=== PATIENT | female | born 1960 | race Caucasian/White ===

== ENCOUNTER 2020-07-02 08:09 | Emergency (ER) | payer BC ==
[~2020-07-02] VITALS: Ht 167.6 cm; Wt 72.6 kg
[2020-07-02 08:28] VITALS: BP 155/98
[2020-07-02] MEDS ORDERED: Morphine Sulfate 4mg/ml Inj (IV USE ONLY) IVP ONE (08:30)
--- NOTE | 2020-07-02 08:49 | NUR ---
ED Nurse Note: pt states walking up stairs yesterday. trip and fall. etoh. pt states hit head, doesnt remember everything. pt A&Ox4 currently. pt presents with R shoulder deformity, able to squeeze hand, wiggle fingers, no tingling or numbness in fingers. R shoulder pain. 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
[2020-07-02 09:00] LABS: BASOPHILS % (AUTO) 3.7 % (0.0-2.0); EOSINOPHILS % (AUTO) 0.4 % (0.0-3.0); HEMATOCRIT 46.9 % (37.0-47.0); HEMOGLOBIN 15.4 G/DL (12.0-16.0); LYMPHOCYTES % (AUTO) 8.7 % (20.0-45.0); MEAN CORPUSCULAR VOLUME 99 FL (80-99); MONOCYTES % (AUTO) 9.1 % (1.0-10.0); NEUTROPHILS % (AUTO) 78.1 % (45.0-75.0); PLATELET COUNT 210 K/UL (150-450); RED BLOOD COUNT 4.74 M/UL (4.20-5.40); RED CELL DISTRIBUTION WIDTH 13.5 % (11.6-14.8); WHITE BLOOD COUNT 14.5 K/UL (4.8-10.8)
[2020-07-02 09:24] LABS: ANION GAP 12 mmol/L (5-15); BLOOD UREA NITROGEN 9 mg/dL (7-18); CALCIUM 9.1 MG/DL (8.5-10.1); CARBON DIOXIDE 24 MMOL/L (21-32); CHLORIDE 104 MMOL/L (98-107); CREATININE 0.8 MG/DL (0.55-1.30); INR 0.9 (0.9-1.1); POTASSIUM 4.3 MMOL/L (3.5-5.1); SODIUM 140 MMOL/L (136-145)
[2020-07-02 09:28] LABS: ALANINE AMINOTRANSFERASE 44 U/L (12-78); ALBUMIN 3.7 G/DL (3.4-5.0); ALBUMIN/GLOBULIN RATIO 0.9 (1.0-2.7); ALKALINE PHOSPHATASE 79 U/L (46-116); ASPARTATE AMINO TRANSFERASE 31 U/L (15-37); BILIRUBIN,TOTAL 0.3 MG/DL (0.2-1.0)
--- NOTE | 2020-07-02 09:35 | NUR ---
ED Nurse Note: pt returned from CT.
--- NOTE | 2020-07-02 09:46 | Diagnostic Imaging Report ---
Indications: Head trauma, altered level of consciousness Technique: Spiral acquisitions obtained through the brain. Angled axial and coronal 5 x 5 mm slices were reconstructed. Total dose length product 1072 mGycm. CTDI vol(s) 53 mGy. Dose reduction achieved using automated exposure control Comparison: None. Findings: No acute intracranial hemorrhage or edema, mass effect, nor midline shift. Normal casillas-white differentiation. There is right supraorbital soft tissue scalp contusion noted. There is minimal ethmoid sinus disease. The visualized orbits are unremarkable.. The mastoids are clear. The calvarium is intact. Impression: Negative for acute intracranial bleed or mass effect. Evidence of supraorbital scalp soft tissue trauma Minimal sinus disease The CT scanner at [facility] is accredited by the [place] [employer] and the scans are performed using protocols designed to limit radiation exposure to as low as reasonably achievable to attain images of sufficient resolution adequate for diagnostic evaluation.
[2020-07-02] MEDS ORDERED: Morphine Sulfate 2mg/ml Inj(IV/IM USE ONLY) IVP ONE (10:00)
[2020-07-02] MEDS ORDERED: Ketorolac 30mg Inj IV ONE (10:00)
[2020-07-02] MEDS ORDERED: COLACE100 MG ORAL (10:01)
[2020-07-02] MEDS ORDERED: PERCOCET 5-3251 EACH ORAL (10:01)
--- NOTE | 2020-07-02 10:11 | NUR ---
ED Nurse Note: covid test sent. pt verbalizes understanding to followup with ortho specialist for possible surgery consutl. pt medicated for pain. pt R arm put into sling for immobilization
--- NOTE | 2020-07-02 10:45 | NUR ---
ER DISCHARGE NOTE: Patient is cleared to be discharged per ERMD, pt is aox4, on room air, with stable vital signs. pt was given dc and prescription instructions, pt was able to verbalize understanding, pt id band and iv site removed without complications. pt is able to ambulate with steady gait. pt took all belongings. pt educated regarding narcotics, R shoulder immobilization. pt verbalizes to followup with specialist.
[2020-07-02 10:50] VITALS: BP 130/67
--- NOTE | 2020-07-02 13:35 | Emergency Room Report ---
History of Present Illness General Chief Complaint: Upper Extremity Injury Source: Patient Present Illness HPI Patient is a 59-year-old female presents for increased right upper extremity pain. Patient had recent fall from standing. She stated she was walking upstairs at the time. Reports having hit her head. Also reports having increased pain to the left hand. Patient said injury occurred approximately 5 hours prior to arrival. Reports being a smoker and having prior history of COPD. Denies any other locations of trauma. Has been ambulatory after the injury. Reports having normal movements to her hand as well as to her elbow. Denies any numbness distally to the injury. Pain is worse with movement sharp in nature. Allergies: Coded Allergies: No Known Allergies (Unverified , 07/02/20) COVID-19 Screening Contact w/high risk pt: No Experienced COVID-19 symptoms?: No COVID-19 Testing performed DIRECTORY ASSISTANCE OPERATOR: No Patient History Past Medical History: see triage record Reviewed Nursing Documentation: PMH: Agreed; PSxH: Agreed Nursing Documentation-PMH Past Medical History: No History, Except For Hx COPD: Yes Review of Systems All Other Systems: negative except mentioned in HPI Physical Exam Vital Signs Date Time Temp Pulse Resp B/P (MAP) Pulse Ox O2 Delivery O2 Flow Rate FiO2 07/02/20 08:14 98.2 110 20 148/86 (106) 93 Room Air Sp02 EP Interpretation: reviewed, normal General Appearance: normal inspection, well appearing, no apparent distress, alert, GCS 15, obese Head: atraumatic ENT: normal ENT inspection, hearing grossly normal, normal voice Neck: normal inspection, full range of motion, supple, no bony tend Respiratory: normal inspection, lungs clear, normal breath sounds, no respiratory distress, no retraction, no wheezing Cardiovascular #1: regular rate, rhythm, no edema Gastrointestinal: normal inspection, normal bowel sounds, non tender, soft, no guarding, no hernia Genitourinary: no CVA tenderness Musculoskeletal: normal inspection, back normal, normal range of motion Neurologic: alert, source water protection specialist III-XII nml as tested, responsive, speech normal, normal inspection, other - Right upper extremity with tenderness over the humerus. No clavicular tenderness Psychiatric: normal inspection, judgement/insight normal, mood/affect normal Medical Decision Making Diagnostic Impression: Primary Impression: Closed right humeral fracture Additional Impressions: Contusion of hand Forehead contusion ER Course Patient presented for fall. Differential diagnosis include was not limited to head injury, shoulder dislocation, fracture among others. Because of complexity of patient's case laboratory tests and imaging studies were ordered. CT imaging of the head read by radiology showed no evidence of acute pathology patient was alert and oriented x3. X-ray imaging of the humerus showed proximal humerus fracture which is markedly comminuted. Patient was placed in a shoulder immobilizer. She was given pain medications. Appears to be neurovascular intact distal to injury. Dr. Cortez Irving was contacted for orthopedic consult and patient will be seen in the office for definitive management. Coronavirus testing was sent for preoperative clearance. Patient was offered admission and she declined. She states she will follow-up with Dr. Irving. Patient was advised to return if any worsening of condition. This medical record is generated with miC[employer] supervisor color making software. There may be some supervisor color making discrepancies related to use of this software Last Vital Signs Date Time Temp Pulse Resp B/P (MAP) Pulse Ox O2 Delivery O2 Flow Rate FiO2 07/02/20 10:50 100 18 130/67 97 Room Air 07/02/20 10:44 98.2 Status: improved Disposition: HOME, SELF-CARE Condition: Stable Scripts Docusate Sodium* (COLACE*) 100 Mg Capsule 100 MG ORAL TWICE A DAY, #20 CAP Prov: Diallo Murrell MD 07/02/20 Oxycodone/Acetaminophen 5-325* (PERCOCET 5-325 MG TABLET*) 1 Each Tablet 1 TAB ORAL Q6H PRN for For Pain, #12 TAB 0 Refills Prov: Diallo Murrell MD 07/02/20 Referrals: NOT CHOSEN IPA/MD,REFERRING (PCP) Moris Irving MD Patient Instructions: Head Injury, Adult, Humerus Fracture Treated With Immobilization Additional Instructions: Follow up with Dr. Irving for recheck tomorrow. Return if worse. Diallo Murrell MD Jul 02, 2020 13:34
--- NOTE | 2020-07-02 18:13 | Diagnostic Imaging Report ---
Indication: Fall, trauma, pain Technique: 3 views of the right shoulder Comparison: none Findings: There is a severely comminuted fracture of the right humeral neck. This is minimally displaced, slightly impacted. This also extends into the humeral head and greater tuberosity. The bones are osteoporotic. The joint spaces are preserved. No dislocation. Impression: Positive for proximal humeral fracture
--- NOTE | 2020-07-02 18:15 | Diagnostic Imaging Report ---
Indication: Painful fall Technique: 3 views left hand Comparison: none Findings: No acute fracture. No dislocation. Bones are osteoporotic. The joint spaces are preserved. Impression: No acute bony trauma
== END 2020-07-02 11:00 | disposition home or self-care (01) ==
LOC: EMR 10:14
DX: S42.201A Unspecified fracture of upper end of right humerus, initial encounter for closed fracture (principal); S60.221A Contusion of right hand, initial encounter; S00.83XA Contusion of other part of head, initial encounter; J44.9 Chronic obstructive pulmonary disease, unspecified; F17.200 Nicotine dependence, unspecified, uncomplicated; W10.9XXA Fall (on) (from) unspecified stairs and steps, initial encounter; Y93.01 Activity, walking, marching and hiking; Y92.9 Unspecified place or not applicable
CPT/HCPCS: 36415; 70450; 73030; 73130; 80053; 85025; 85610; 85730; 96374; 96375; 96376; 99284; J1885; J2270; J2405; U0004

== ENCOUNTER 2020-07-04 12:28 | Inpatient (IN) | payer BC, MEDICAID ==
[~2020-07-04] VITALS: Ht 165.1 cm; Wt 72.6 kg
[~2020-07-04 12:28] MED LIST: COLACE100 MG ORAL; PERCOCET 5-3251 EACH ORAL
--- NOTE | 2020-07-04 12:53 | NUR ---
ED Nurse Note:pt. was sent by dr. Irving for preadmition for right shoulder surgery tomorrow
[2020-07-04 13:05] VITALS: BP 162/87
[2020-07-04 13:22] LABS: BASOPHILS % (AUTO) 0.7 % (0.0-2.0); EOSINOPHILS % (AUTO) 0.3 % (0.0-3.0); HEMATOCRIT 42.4 % (37.0-47.0); HEMOGLOBIN 13.9 G/DL (12.0-16.0); LYMPHOCYTES % (AUTO) 20.8 % (20.0-45.0); MEAN CORPUSCULAR VOLUME 100 FL (80-99); MONOCYTES % (AUTO) 7.9 % (1.0-10.0); NEUTROPHILS % (AUTO) 70.3 % (45.0-75.0); PLATELET COUNT 194 K/UL (150-450); RED BLOOD COUNT 4.24 M/UL (4.20-5.40); RED CELL DISTRIBUTION WIDTH 13.6 % (11.6-14.8); WHITE BLOOD COUNT 12.8 K/UL (4.8-10.8)
[2020-07-04 13:28] LABS: ANION GAP 9 mmol/L (5-15); BLOOD UREA NITROGEN 10 mg/dL (7-18); CALCIUM 9.4 MG/DL (8.5-10.1); CARBON DIOXIDE 28 MMOL/L (21-32); CHLORIDE 101 MMOL/L (98-107); CREATININE 0.8 MG/DL (0.55-1.30); POTASSIUM 3.7 MMOL/L (3.5-5.1); SODIUM 137 MMOL/L (136-145)
[2020-07-04 13:33] LABS: ALANINE AMINOTRANSFERASE 33 U/L (12-78); ALBUMIN 3.4 G/DL (3.4-5.0); ALBUMIN/GLOBULIN RATIO 0.8 (1.0-2.7); ALKALINE PHOSPHATASE 74 U/L (46-116); ASPARTATE AMINO TRANSFERASE 22 U/L (15-37); BILIRUBIN,TOTAL 0.6 MG/DL (0.2-1.0)
[2020-07-04] MEDS ORDERED: HYDROcodone/Acetamin 5/325 tab ORAL ONE (13:45)
--- NOTE | 2020-07-04 13:56 | Emergency Room Report ---
History of Present Illness General Chief Complaint: Upper Extremity Injury Source: Patient Present Illness HPI Disclaimer: Please note that this report is being documented using dbTwang technology. This can lead to erroneous entry secondary to incorrect interpretation by the dictating instrument. HPI: 59-year-old female history of COPD presents as directed by her primary orthopedist for a proximal right humerus fracture. Orthopedics would like to do surgery to repair the fracture. Referred by Dr. Irving. Patient does have pain in the arm approximately 8 out of 10 aching in nature nonradiating. She was seen here 2 days ago for a fall. At that time CT was negative. PMH: COPD PSH: Reviewed Social Hx: Active smoker occasional drinking Allergies: Coded Allergies: No Known Allergies (Unverified , 07/02/20) COVID-19 Screening Contact w/high risk pt: No Experienced COVID-19 symptoms?: No COVID-19 Testing performed YARD HAND: Yes COVID-19 Screening: Negative COVID-19 COVID-19 Testing Source: nasal Patient History Reviewed Nursing Documentation: PMH: Agreed; PSxH: Agreed Nursing Documentation-PMH Past Medical History: No History, Except For Hx COPD: Yes Review of Systems All Other Systems: negative except mentioned in HPI Physical Exam Vital Signs Date Time Temp Pulse Resp B/P (MAP) Pulse Ox O2 Delivery O2 Flow Rate FiO2 07/04/20 12:42 98.1 115 18 162/87 (112) 98 Room Air Sp02 EP Interpretation: reviewed, normal General Appearance: well appearing, no apparent distress Head: normocephalic, other - Right periorbital contusion Eyes: bilateral eye PERRL, bilateral eye EOMI ENT: hearing grossly normal, moist mucus membranes Neck: full range of motion, supple Respiratory: lungs clear, normal breath sounds, no rhonchi, no respiratory distress, no retraction, no wheezing Cardiovascular #1: normal peripheral pulses, no murmur, tachycardia Gastrointestinal: non tender, soft, non-distended, no guarding Musculoskeletal: other - Right upper extremity swollen tender at the proximal humerus, arm is in an immobilizer, sensation and motor intact pulses intact Neurologic: alert, oriented x3, no focal defects Skin: normal color, warm/dry Medical Decision Making Diagnostic Impression: Primary Impression: Closed right humeral fracture ER Course MDM: Patient presents for known right proximal humerus fracture. Dr. Irving plans to do surgery on the arm. Perioperative labs were sent. No significant abnormalities noted. Pain control ordered. Patient will be admitted to the medical floor under Dr. Hurst Clinical course-IV, labs, pain control Labs - Laboratory Tests Test 07/04/20 13:00 White Blood Count 12.8 K/UL (4.8-10.8) H Red Blood Count 4.24 M/UL (4.20-5.40) Hemoglobin 13.9 G/DL (12.0-16.0) Hematocrit 42.4 % (37.0-47.0) Mean Corpuscular Volume 100 FL (80-99) H Mean Corpuscular Hemoglobin 32.7 PG (27.0-31.0) H Mean Corpuscular Hemoglobin Concent 32.7 G/DL (32.0-36.0) Red Cell Distribution Width 13.6 % (11.6-14.8) Platelet Count 194 K/UL (150-450) Mean Platelet Volume 9.7 FL (6.5-10.1) Neutrophils (%) (Auto) 70.3 % (45.0-75.0) Lymphocytes (%) (Auto) 20.8 % (20.0-45.0) Monocytes (%) (Auto) 7.9 % (1.0-10.0) Eosinophils (%) (Auto) 0.3 % (0.0-3.0) Basophils (%) (Auto) 0.7 % (0.0-2.0) Prothrombin Time 10.9 SEC (9.30-11.50) Prothrombin Time INR 1.0 (0.9-1.1) Activated Partial Thromboplast Time 30 SEC (23-33) Sodium Level 137 MMOL/L (136-145) Potassium Level 3.7 MMOL/L (3.5-5.1) Chloride Level 101 MMOL/L (98-107) Carbon Dioxide Level 28 MMOL/L (21-32) Anion Gap 9 mmol/L (5-15) Blood Urea Nitrogen 10 mg/dL (7-18) Creatinine 0.8 MG/DL (0.55-1.30) Estimated Glomerular Filtration Rate > 60 mL/min (>60) Glucose Level 120 MG/DL (74-106) H Calcium Level 9.4 MG/DL (8.5-10.1) Total Bilirubin 0.6 MG/DL (0.2-1.0) Aspartate Amino Transferase (AST) 22 U/L (15-37) Alanine Aminotransferase (ALT) 33 U/L (12-78) Alkaline Phosphatase 74 U/L (46-116) Total Protein 7.5 G/DL (6.4-8.2) Albumin 3.4 G/DL (3.4-5.0) Globulin 4.1 g/dL Albumin/Globulin Ratio 0.8 (1.0-2.7) L EKG Diagnostic Results Rate: tachycardiac Rhythm: other - Sinus tachycardia ST Segments: no acute changes Last Vital Signs Date Time Temp Pulse Resp B/P (MAP) Pulse Ox O2 Delivery O2 Flow Rate FiO2 07/04/20 13:05 98.1 110 18 162/87 98 Room Air Disposition: ADMITTED INPATIENT Condition: Serious Referrals: NON PHYSICIAN (PCP) Tyrel Damon M.D. Jul 04, 2020 13:56
--- NOTE | 2020-07-04 14:34 | Diagnostic Imaging Report ---
Indication: Chest pain. Preop Technique: XRAY Chest 1v Comparison: None Findings: Heart size and mediastinal contours are within normal limits for AP technique. There is no focal airspace consolidation, pneumothorax or pleural effusion. Acute fracture of the right proximal humerus, as described on concurrent shoulder radiographs. IMPRESSION: No radiographic evidence of acute cardiopulmonary disease. Acute fracture of the right proximal humerus, as described on concurrent shoulder radiographs.
--- NOTE | 2020-07-04 15:17 | History & Physical ---
Cuco Aguilera 07/04/20 1517: History and Physical History & Physicial Attending physician: Dr. Hurst Reason for admission: Schedule surgery for right shoulder fracture HPI: This is a 59-year-old female who presents today for a scheduled surgery of her right shoulder. Patient visited the [facility] emergency room on 07/02/2020 after a mechanical fall at home. Head CT during that visit was negative for acute intracranial bleed or mass-effect. Hand x-ray was negative for acute fracture or dislocation. The right shoulder x-ray was positive for proximal humeral fracture. Patient was placed in a shoulder immobilizer and was given pain medication. Patient was offered admission and she declined. Today she returns to ED per orthopedist's recommendation. She reports pain in her right arm 8 out of 10 in severity without radiation. Patient is stable today and will be admitted to the hospital for surgery. Patient was given [place] in ER for pain management. She tested negative for COVID-19 on 07/02/2020. PMHx: COPD Meds: Docusate, Percocet Allergies: No known allergies FHx: Unknown Personal/Social Hx: Lives at home with children ROS: HEENT: Denies any headaches, blurry vision, hoarseness, dysphagia, hearing loss, tinnitus, or loss of balance. Chest and lung: Denies any chest discomfort or hemoptysis Cardiovascular: Denies any exertional chest pain, pressure, palpitations, orthopnea, PND, or ankle swelling Gastrointestinal: Denies vomiting, abdominal pain or oily or foul smelling stools. No constipation or hematochezia Genitourinary: Denies any frequency, urgency, dysuria, hematuria, flank pain, kidney stone or kidney disease. Neurological: Denies seizure activity, dizziness or fainting episode PE: VS: BP 162/87, HR 110, RR 18, wt 73 kg, ht 168 cm General: Patient sitting up in bed, NAD, with her arm sling on her right arm HEENT: Head examination reveals that the head is normocephalic, atraumatic without deformity or unusual swelling. Pupils are round, reactive to light and accommodation normally. There is no nystagmus, lid lag or exophthalmos. Nasal mucosa is pink. Vision is normal. Facial hematoma noted under her right orbital, no otorrhea, or chiu sign noted Chest and Lung: Reveals clear, normal, symmetrical breath sounds with no adventitious sound. Expansion is normal. There are no surgical scars. Cardiovascular: Reveals normal S1, S2 without murmurs, rubs or clicks Abdomen: Soft with no tenderness or organomegaly Rectal: Deferred Musculoskeletal: There is no tenderness to palpation. Range of motion is normal Neurological: Nonfocal Laboratory data: Lab testing shows WBC 12.8 Chemistries glucose 120, otherwise unremarkable Impression and recommendation: 1. History of COPD -Patient denies use of home oxygen -Patient is currently saturating well on room air -Reports last COPD exacerbation was over 1.5 year ago -Provide supplemental oxygen as needed 2. Proximal humeral fracture -Scheduled for surgery by Dr. Irving - s/p pain control with [place] in ER 3. Hypertensive - Will add clonidine 0.1 mg PO q6HR prn SBP >150 4. Hyperglycemia without history of DM - Will check A1c The care for this patient was discussed with my supervising physician. Time spent for this case was approximately 31 minutes. Dung Hurst MD 07/04/201651: History and Physical History & Physicial Addendum: Dung Hurst MD on 07/04/20 @ 16:51 The history of Eboni Garcia has been reviewed and management options for her have been examined and discussed by Dung Hurst. I have personally examined and interviewed the patient. Her chest x-ray is normal. Her EKGs shows sinus tachycardia. Her lab data is acceptable. She is considered at [id number] risk for perioperative complications due to her age and COPD. Cuco Aguilera Jul 04, 2020 15:17 Dung Hurst MD Jul 04, 2020 16:52
[2020-07-04 15:33] VITALS: BP 145/76
--- NOTE | 2020-07-04 15:36 | NUR ---
ED Nurse Note:called report to [facility] east-given to Keesha pt. is stable for transfer up
--- NOTE | 2020-07-04 16:00 | NUR ---
NURSE NOTES: Received report from VÍCTOR Guardado. Patient received awake, alert, and oriented x4. Seen lying in bed with HOB elevated currently on room air, no s/sx of SOB/Distress, pt verbalized discomfort at right arm where fx is located. Patient with IV site RAC gauge [address], intact and patent. Skin assessment from head to toe done. No pressure injuries observed, scattered ecchymosis seen on right side (Arm and torso), ecchymosis as well seen under the right eye. Belongings checked, all accounted for. Dr. Hurst and Dr. Irving made aware of arrival to unit. All admission orders received. Patient will be put on NPO after midnight.
[2020-07-04 16:30] VITALS: BP 163/89
[2020-07-04] MEDS: Dyna-Hex 2% Top Sol 2oz TOPIC SCH (17:05)
[2020-07-04] MEDS: Docusate 100mg cap ORAL SCH (17:09)
--- NOTE | 2020-07-04 17:30 | NUR ---
NURSE NOTES: Chlorhexadine not given no central line on patient.
--- NOTE | 2020-07-04 19:38 | NUR ---
NURSE HAND-OFF: Important Events on Shift:admission, consent for surgery and blood transfusion obtained, pain management Patient Status: stable Diet: npo at midnight Pending Orders: n/a Pending Results/Labs:n/a Pending MD notification:n/a Latest Vital Signs: Temperature 97.9 , Pulse 108 , B/P 163 /89 , Respiratory Rate 19 , O2 SAT 94 , Room Air, O2 Flow Rate . Vital Sign Comment: stable Latest Todd Fall Score: 45 Fall Risk: High Risk Safety Measures: Call light , Bed Alarm Zone 2, Side Rails Side Rails x2, Bed position Low and Locked. Fall Precautions: Yellow Socks Yellow Gown Door Sign Patient Fall Education Report given to VÍCTOR Uribe.
--- NOTE | 2020-07-04 19:40 | NUR ---
NURSE NOTES: received report from yudelka lewis. patient on bed, awake and verbally responsive. denies any pain or discomfort. on room air, no sob. iv access on the left ac,saline lock. per debbie" patient is for surgery tomorrow ORIF, NPO POST MIDNIGHT". consent are signed.ambulates with assist. reiterated to call and ask for assistance to prevent fall or injury. noted with right shoulder immobilizer. call light and light button within easy reach. bed locked and in lowest position. will continue plan of care.
[2020-07-04 20:00] VITALS: BP 136/72
[2020-07-04] MEDS: oxyCODONE HCL/Acetaminophen 5/325mg ORAL PRN (20:13)
[2020-07-05] VITALS (16 sets, daily range): BP systolic 132–166; BP diastolic 63–92
[2020-07-05] MEDS: oxyCODONE HCL/Acetaminophen 5/325mg ORAL PRN (03:37)
--- NOTE | 2020-07-05 06:00 | NUR ---
NURSE NOTES: called OR to verify regarding the time of the surgery to be done. per OR, "she's not on the list yet for the surgery today, will call you when we got a time slot for the patient" charge nurse made aware
--- NOTE | 2020-07-05 06:39 | NUR ---
NURSE HAND-OFF: Important Events on Shift: pending ORIF ON THE RIGHT PROXIMAL HUMERUS; CONSENTS SIGNED. CALLED TO OR TO VERIFY FOR THE TIME OF THE SURGERY, PER OR" NO TIME SLOT AT THE MOMENT; WILL CALL AND UPDATE YOU FOR ANY UPDATES" NPO POST MIDNIGHT Patient Status: STABLE Diet: NPO POST MIDNIGHT Pending Orders: PENDING ORIF ON THE RIGHT PROXIMAL HUMERUS Pending Results/Labs: Pending MD notification: Latest Vital Signs: Temperature 97.7 , Pulse 79 , B/P 132 /76 , Respiratory Rate 20 , O2 SAT 98 , Room Air, O2 Flow Rate . Vital Sign Comment: Latest Todd Fall Score: 45 Fall Risk: High Risk Safety Measures: Call light Within Reach, Bed Alarm Zone 1, Side Rails Side Rails x2, Bed position Low and Locked. Fall Precautions: Patient Fall Education Addendum: 07/05/20 at 0728 by Maria Del Carmen Douglas RN report given to yudelka patel
[2020-07-05 06:40] LABS: EOSINOPHILS % (AUTO) 2.1 % (0.0-3.0); HEMATOCRIT 37.8 % (37.0-47.0); HEMOGLOBIN 12.7 G/DL (12.0-16.0); LYMPHOCYTES % (AUTO) 22.2 % (20.0-45.0); MEAN CORPUSCULAR VOLUME 100 FL (80-99); MONOCYTES % (AUTO) 8.7 % (1.0-10.0); PLATELET COUNT 170 K/UL (150-450); RED BLOOD COUNT 3.79 M/UL (4.20-5.40); RED CELL DISTRIBUTION WIDTH 13.3 % (11.6-14.8)
[2020-07-05 07:04] LABS: ANION GAP 9 mmol/L (5-15); BLOOD UREA NITROGEN 9 mg/dL (7-18); CARBON DIOXIDE 27 MMOL/L (21-32); CHLORIDE 102 MMOL/L (98-107); CREATININE 0.8 MG/DL (0.55-1.30); POTASSIUM 3.5 MMOL/L (3.5-5.1); SODIUM 138 MMOL/L (136-145)
--- NOTE | 2020-07-05 07:30 | NUR ---
NURSE NOTES: Received report from VÍCTOR Uribe. Pt is asleep. No SOB noted. Denies any pain at this time. Pt keep NPO. Lt AC IV access is in placed. Bed in lowest position, call light within reach. Will continue to monitor.
[2020-07-05] MEDS: Docusate 100mg cap ORAL SCH ×2 (09:00→18:00)
[2020-07-05] MEDS: Dyna-Hex 2% Top Sol 2oz TOPIC SCH ×2 (09:00→18:00)
--- NOTE | 2020-07-05 09:09 | NUR ---
CASE MANAGEMENT:REVIEW 59 YR OLD MALE TO ER SI: RT SHOULDER FRACTURE 98.1 115 18 162/87 98% ON RA WBC+12.8 IS: NORCO PO CHEST XRAY : TO MED/SURG UNIT DCP: FROM HOME PLAN: SURGERY
[2020-07-05] MEDS ORDERED: Morphine Sulfate 2mg/ml Inj(IV/IM USE ONLY) IVP PRN (10:45)
--- NOTE | 2020-07-05 10:45 | NUR ---
NURSE NOTES: received order from of morphine 2mg IVP Q2hrs for severe pain. Jose,Primary nurse on break. read back order to Dr. campbell. Order noted and carried out.
--- NOTE | 2020-07-05 12:43 | NUR ---
NURSE NOTES: BP 156/85 and NE 105. ANNIE Aguilera is aware. No new order.
[2020-07-05] MEDS ORDERED: GABAPENTIN600 MG ORAL (12:45)
[2020-07-05] MEDS ORDERED: TRAZODONE HCL100 MG ORAL ×2 (12:45)
[2020-07-05] MEDS ORDERED: WELLBUTRIN XL150 MG ORAL (12:45)
--- NOTE | 2020-07-05 13:04 | NUR ---
NURSE NOTES: Patient is off the unit for right shoulder surgery in stable condition.
[2020-07-05] MEDS ORDERED: Bupivacaine 0.25% Inj 30ml INJ ONE (13:05)
[2020-07-05] MEDS ORDERED: Rocuronium Bromide 50mg/5ml Inj IV ONE (13:06)
[2020-07-05] MEDS ORDERED: NeoSporin Gu Irrig 1ml Amp IRRIG ONE (13:22)
[2020-07-05] MEDS ORDERED: Kenalog-40 1ml Vial ONE (13:22)
[2020-07-05] MEDS ORDERED: Bacitracin 50000 Units Vial ONE (13:22)
[2020-07-05] MEDS ORDERED: Ketorolac 30mg Inj ONE (13:22)
[2020-07-05] MEDS ORDERED: Duramorph PF 5mg/10ml amp ONE (13:22)
[2020-07-05] MEDS ORDERED: Bupivacaine w/Epi 0.25% 50ml vial INJ ONE (13:22)
--- NOTE | 2020-07-05 13:23 | NUR ---
INSURANCE CLINICALS/REVIEWS FAXED TO [employer] [phone] OPT 6
[2020-07-05] MEDS ORDERED: NS Irrig 1000ml IRRIG ONE ×2 (13:25→14:15)
[2020-07-05] MEDS ORDERED: Midazolam 2mg/2ml Inj ONE (13:28)
[2020-07-05] MEDS ORDERED: fentaNYL 100 mcg/2 mL IV ONE ×2 (13:28→14:57)
[2020-07-05] MEDS ORDERED: Sterile Water Irrig 1000ml IRRIG ONE (13:30)
[2020-07-05] MEDS ORDERED: LR 1000ml ONE (13:30)
[2020-07-05] MEDS ORDERED: NS Irrig 1000ml ONE (13:30)
--- NOTE | 2020-07-05 14:04 | Pre-Procedure Note/Attestation ---
Pre-Procedure Note/Attestation Complete Prior to Procedure Planned Procedure: right Procedure Narrative: shoulder orif proximal humerus Indications for Procedure Pre-Operative Diagnosis: right shoulder proximal humerus fracture Attestation I attest that I discussed the nature of the procedure; its benefits; risks and complications; and alternatives (and the risks and benefits of such alte rnatives), prior to the procedure, with the patient (or the patient's legal residential sales representative). I attest that, if there was a reasonable possibility of needing a blood transfusion, the patient (or the patient's legal residential sales representative) was given the [facility] standardized written summary, pursuant to the Naldo Barbara Blood Safety Act ([place] Health and Safety Code # 1645, as amended). I attest that I re-evaluated the patient just prior to the surgery and that there has been no change in the patient's H&P, except as documented below: Moris Irving MD Jul 05, 2020 14:04
--- NOTE | 2020-07-05 14:05 | Operative Note - PDOC ---
Operative Note Operative Note Pre-op Diagnosis: right shoulder proximal humerus fracture Procedure: see op report Post-op Diagnosis: same as pre-op plus Operative Findings: consistent w/pre-op dx studies Anesthesia: regional Specimen: none Complications: none Condition: stable Estimated Blood Loss: none Implant(s) used?: Yes Moris Irving MD Jul 05, 2020 14:05
[2020-07-05] MEDS ORDERED: Hydromorphone 0.5mg/0.5ml inj SUBQ PRN (14:15)
[2020-07-05] MEDS ORDERED: Tranexamic Acid 100 ML IVPB ONE (14:37)
[2020-07-05] MEDS ORDERED: Lidocaine 1% MPF 10mg/ml 5ml ONE (14:40)
[2020-07-05] MEDS ORDERED: Metoclopramide 10mg/2ml Inj ONE (14:40)
[2020-07-05] MEDS ORDERED: Glycopyrrolate 0.2mg/ml 1ml Vial ONE (14:40)
[2020-07-05] MEDS ORDERED: Neostigmine 1mg/ml 10ml Inj ONE (14:40)
[2020-07-05] MEDS ORDERED: Ropivacaine 5mg/ml Vial 30ml INJ ONE (14:40)
[2020-07-05] MEDS ORDERED: Phenylephrine 10mg/ml Vial ONE (15:14)
[2020-07-05] MEDS ORDERED: Hydrogen Peroxide 473ml Bottle TOPIC ONE (15:20)
[2020-07-05] MEDS ORDERED: Hydromorphone 0.5mg/0.5ml inj IVP PRN (15:30)
[2020-07-05] MEDS ORDERED: fentaNYL 100 mcg/2 mL IV PRN (15:30)
[2020-07-05] MEDS ORDERED: Metoclopramide 10mg/2ml Inj IVP PRN (15:30)
[2020-07-05] MEDS ORDERED: Acetaminophen (Non formulary) 100 ML IV ONE (15:30)
--- NOTE | 2020-07-05 15:33 | Pulmonology Progress Note ---
Subjective ROS Limited/Unobtainable: No Interval Events: surgery today Constitutional: Reports: no symptoms HEENT: Repors: no symptoms Respiratory: Reports: no symptoms Cardiovascular: Reports: no symptoms Gastrointestinal/Abdominal: Reports: no symptoms Genitourinary: Reports: no symptoms Musculoskeletal: Reports: pain - right shoulder Allergies: Coded Allergies: No Known Allergies (Unverified , 07/02/20) Objective Last 24 Hour Vital Signs Date Time Temp Pulse Resp B/P (MAP) Pulse Ox O2 Delivery O2 Flow Rate FiO2 07/05/20 12:00 97.4 105 20 156/85 (108) 96 07/05/20 09:00 Room Air 07/05/20 08:00 98.1 91 20 149/70 (96) 94 07/05/20 04:07 97.7 07/05/20 04:00 97.7 79 20 132/76 (94) 98 07/05/20 00:00 97.9 81 20 134/66 (88) 98 07/04/20 21:00 Room Air 07/04/20 20:43 96.7 07/04/20 20:00 96.7 79 20 136/72 (93) 98 07/04/20 17:09 163/89 07/04/20 16:30 Room Air 07/04/20 16:30 97.9 108 19 163/89 (113) 94 07/04/20 15:34 98.1 105 18 145/76 98 Room Air 07/04/20 15:33 98.1 105 18 145/76 98 Room Air Intake and Output 0 07/04/20 07/05/20 19:00 07:00 Intake Total 300 ml 350 ml Balance 300 ml 350 ml Intake Oral 300 ml 350 ml # Voids 3 General Appearance: no acute distress HEENT: atraumatic Respiratory: lungs clear Cardiovascular: normal rate Abdomen: soft, non tender Laboratory Tests 07/05/20 06:00: White Blood Count 11.0H, Red Blood Count 3.79L, Hemoglobin 12.7, Hematocrit 37.8, Mean Corpuscular Volume 100H, Mean Corpuscular Hemoglobin 33.5H, Mean Corpuscular Hemoglobin Concent 33.6, Red Cell Distribution Width 13.3, Platelet Count 170, Mean Platelet Volume 9.8, Neutrophils (%) (Auto) 66.0, Lymphocytes (%) (Auto) 22.2, Monocytes (%) (Auto) 8.7, Eosinophils (%) (Auto) 2.1, Basophils (%) (Auto) 1.0, Sodium Level 138, Potassium Level 3.5, Chloride Level 102, Carbon Dioxide Level 27, Anion Gap 9, Blood Urea Nitrogen 9, Creatinine 0.8, Estimat Glomerular Filtration Rate > 60, Glucose Level 140H, Hemoglobin A1c 6.3H , Calcium Level 9.0 Current Medications Medications (Trade) Dose Ordered Sig/Jose Route PRN Reason Start Time Stop Time Status Last Admin Dose Admin Acetaminophen 100 ml @ 400 mls/hr NOW ONCE IV 07/05/20 15:30 07/05/20 15:44 Acetaminophen (Tylenol) 650 mg Q6H PRN ORAL Temp >100.5 07/04/20 16:36 08/03/20 16:35 Chlorhexidine Gluconate (Jocelyn-Hex 2%) 1 applic BID TOPIC 07/04/20 18:00 10/02/20 17:59 Clonidine HCl (Catapres Tab) 0.1 mg Q6H PRN ORAL For High Blood Pressure 07/04/20 15:30 10/02/20 15:29 07/04/20 17:09 Dextrose (Dextrose 50%) 25 ml Q30M PRN IV Hypoglycemia 07/04/20 15:15 10/02/20 15:14 Dextrose (Dextrose 50%) 50 ml Q30M PRN IV Hypoglycemia 07/04/20 15:15 10/02/20 15:14 Docusate Sodium (Colace) 100 mg THREE TIMES A DAY ORAL 07/05/20 18:00 08/04/20 17:59 Fentanyl Citrate (Sublimaze 100 mcg/2 mL) 25 mcg Q10M PRN IV Moderate Pain (Pain Scale 4-6) 07/05/20 15:30 07/05/20 21:00 Hydralazine HCl (Apresoline) 5 mg Q30M PRN IV SBP>160 OR___/DBP>90 OR___ 07/05/20 15:30 07/05/20 21:00 Hydromorphone HCl (Dilaudid) 0.5 mg Q15M PRN IVP Severe Pain (Pain Scale 7-10) 07/05/20 15:30 07/05/20 21:00 Hydromorphone HCl (Dilaudid) 0.5 mg Q4H PRN SUBQ Mild Pain (Pain Scale 1-3) 07/05/20 14:15 07/12/20 14:14 Hydromorphone HCl (Dilaudid) 1 mg Q3H PRN SUBQ Moderate Pain (Pain Scale 4-6) 07/05/20 14:15 07/12/20 14:14 Metoclopramide HCl (Reglan) 10 mg Q1H PRN IVP Nausea & Vomiting 07/05/20 15:30 07/05/20 21:00 Ondansetron HCl (Zofran) 4 mg Q1H PRN IVP Nausea & Vomiting 07/05/20 15:30 07/05/20 21:00 Ondansetron HCl (Zofran) 4 mg Q6H PRN IVP Nausea & Vomiting 07/05/20 14:15 08/04/20 14:14 Oxycodone HCl (OxyCONTIN) 20 mg EVERY 12 HOURS ORAL 07/05/20 21:00 07/12/20 20:59 Temazepam (RestoriL) 7.5 mg HSPRN PRN ORAL Insomnia 07/05/20 14:15 07/12/20 14:14 Assessment/Plan Assessment/Plan 1. History of COPD -Patient denies use of home oxygen -Patient is currently saturating well on room air -Reports last COPD exacerbation was over 1.5 year ago -Provide supplemental oxygen as needed 2. Proximal humeral fracture -Scheduled for surgery by Dr. Irving - s/p pain control with [facility] in ER 3. Hypertensive - Will add clonidine 0.1 mg PO q6HR prn SBP >150 4. Hyperglycemia without history of DM - A1c 6.3 DVT ppx - on SCD currently The care for this patient was discussed with my supervising physician. Time spent for this case was approximately 31 minutes. Cuco Aguilera Jul 05, 2020 15:33
[2020-07-05] MEDS ORDERED: Vancomycin 1gm vial IVPB ONE (15:52)
--- NOTE | 2020-07-05 16:29 | Diagnostic Imaging Report ---
INDICATION: Pain, intraoperative TECHNIQUE: Intraoperative imaging Fluoroscopy time: 45.1 seconds Total dose: [id number] mGym2 Total number of images: 4 COMPARISON: 07/02/2020 FINDINGS: Intraoperative images document surgical repair of previously demonstrated humeral neck fracture with plate and multiple screws IMPRESSION: Intraoperative imaging, as described
[2020-07-05] MEDS ORDERED: DiphenhydrAMINE 50mg/ml Inj ONE (16:36)
--- NOTE | 2020-07-05 16:40 | Immediate Post-Op Evaluation ---
Immediate Post-Op Evalulation Immediate Post-Op Evalulation Procedure: right humerus ORIF Date of Evaluation: Jul 05, 2020 Time of Evaluation: 16:35 IV Fluids: 800 Blood Products: 0 Blood Pressure Systolic: 155 Blood Pressure Diastolic: 80 Pulse Rate: 105 Respiratory Rate: 14 O2 Sat by Pulse Oximetry: 100 Temperature (Fahrenheit): 98.2 Nausea: No Vomiting: No Complications NONE Patient Status: awake, reacts, patent Hydration Status: adequate Drug: ancef Given Within 1 Hr of Incision: Yes Time Given: 13:45 Nurys Clarke CRNA Jul 05, 2020 16:40
--- NOTE | 2020-07-05 16:42 | Anethesia Preoperative Eval ---
Anesthesia Pre-op PMH/ROS General Date of Evaluation: Jul 05, 2020 Time of Evaluation: 13:35 Anesthesiologist: gena ASA Score: ASA 2 Mallampati Score Class I : Soft palate, uvula, fauces, pillars visible Class II: Soft palate, uvula, fauces visible Class III: Soft palate, base of uvula visible Class IV: Only hard plate visible Mallampati Classification: Class II Surgeon: shannan Diagnosis: humerus fx Surgical Procedure: ORIF R humerus Anesthesia History: none Family History: no anesthesia problems Allergies: Coded Allergies: No Known Allergies (Unverified , 07/02/20) Medications: see eMAR Patient NPO?: Yes NPO Date: Jul 05, 2020 NPO Time: 00:01 Past Medical History Cardiovascular: Denies: HTN, CAD, MT, valve dz, arrhythmia, other Pulmonary: Reports: COPD; Denies: asthma, MIGUEL, other Gastrointestinal/Genitourinary: Denies: GERD, CRI, ESRD, other Neurologic/Psychiatric: Denies: dementia, CVA, depression/anxiety, TIA, other Endocrine: Denies: DM, hypothyroidism, steroids, other HEENT: Denies: cataract (L), cataract (R), glaucoma, AGUA CALIENTE (L), AGUA CALIENTE (R), other Hematology/Immune: Denies: anemia, DVT, bleeding disorder, other PSxH Narrative: Liposuction Anesthesia Pre-op Phys. Exam Physician Exam Last Vital Signs Date Time Temp Pulse Resp B/P (MAP) Pulse Ox O2 Delivery O2 Flow Rate FiO2 07/05/20 12:00 97.4 105 20 156/85 (108) 96 07/05/20 09:00 Room Air Constitutional: NAD Neurologic: CN 2-12 intact Cardiovascular: RRR Respiratory: CTA Gastrointestinal: S/NT/ND Airway Exam Mallampati Classification 2 Mallampati Score: Class II MO: full ROM: full Dentures: no upper, no lower Anesthesia Pre-op A/P Labs Hematology Test 07/05/20 06:00 White Blood Count 11.0 K/UL (4.8-10.8) H Red Blood Count 3.79 M/UL (4.20-5.40) L Hemoglobin 12.7 G/DL (12.0-16.0) Hematocrit 37.8 % (37.0-47.0) Mean Corpuscular Volume 100 FL (80-99) H Mean Corpuscular Hemoglobin 33.5 PG (27.0-31.0) H Mean Corpuscular Hemoglobin Concent 33.6 G/DL (32.0-36.0) Red Cell Distribution Width 13.3 % (11.6-14.8) Platelet Count 170 K/UL (150-450) Mean Platelet Volume 9.8 FL (6.5-10.1) Neutrophils (%) (Auto) 66.0 % (45.0-75.0) Lymphocytes (%) (Auto) 22.2 % (20.0-45.0) Monocytes (%) (Auto) 8.7 % (1.0-10.0) Eosinophils (%) (Auto) 2.1 % (0.0-3.0) Basophils (%) (Auto) 1.0 % (0.0-2.0) Chemistry Test 07/05/20 06:00 Sodium Level 138 MMOL/L (136-145) Potassium Level 3.5 MMOL/L (3.5-5.1) Chloride Level 102 MMOL/L (98-107) Carbon Dioxide Level 27 MMOL/L (21-32) Anion Gap 9 mmol/L (5-15) Blood Urea Nitrogen 9 mg/dL (7-18) Creatinine 0.8 MG/DL (0.55-1.30) Estimat Glomerular Filtration Rate > 60 mL/min (>60) Glucose Level 140 MG/DL (74-106) H Hemoglobin A1c 6.3 % (4.3-6.0) H Calcium Level 9.0 MG/DL (8.5-10.1) Studies Pre-op Studies: EKG - sr Risk Assessment & Plan Assessment: covid neg Plan: General/ISB block Status Change Before Surgery: No Pre-Antibiotics Drug: ancef Given Within 1 Hr of Incision: Yes Time Given: 13:45 Nurys Clarke CRNA Jul 05, 2020 16:42
[2020-07-05] MEDS ORDERED: DiphenhydrAMINE 50mg/ml Inj IVP SCH (16:45)
[2020-07-05] MEDS ORDERED: Meperidine 25mg/1ml Inj (FOR RIGORS ONLY) IV PRN (16:45)
[2020-07-05] MEDS ORDERED: DiphenhydrAMINE 50mg/ml Inj IVP PRN (16:45)
--- NOTE | 2020-07-05 16:55 | 48 Hour Post Anesthesia Eval ---
Post Anesthesia Evaluation Procedure: right humerus ORIF Date of Evaluation: Jul 05, 2020 Time of Evaluation: 16:54 Blood Pressure Systolic: 150 0: 70 Pulse Rate: 100 Respiratory Rate: 14 O2 Sat by Pulse Oximetry: 98 Airway: patent Nausea: No Vomiting: No Pain Intensity: 0 Hydration Status: adequate Cardiopulmonary Status: stable Mental Status/LOC: patient returned to baseline Post-Anesthesia Complications: none Follow-up care needed: N/A Nurys Clarke CRNA Jul 05, 2020 16:55
--- NOTE | 2020-07-05 17:55 | NUR ---
NURSE NOTES: Received patient after right shoulder OR/IF. No SOB noted. Denies any pain at this time. NS is running at this time. SCD is on. Bed in lowest position, call light within reach. Will continue to monitor.
--- NOTE | 2020-07-05 18:44 | Operative Note - Dictated ---
DATE OF OPERATION: 07/04/2020 PREOPERATIVE DIAGNOSIS: Right proximal humerus fracture. POSTOPERATIVE DIAGNOSIS: Right proximal humerus fracture. PROCEDURE PERFORMED: 1. Right shoulder open reduction internal fixation, plate and screw fixation. 2. Biceps tenodesis, supra pectoral biceps to open tenodesis. 3. Bursectomy and release of CA ligament. Open right shoulder CA ligament release with subacromial bursectomy. SURGEON: Moris Irving MD ANESTHESIA: Interscalene with general. INDICATION FOR PROCEDURE: Patient is a pleasant female with systemic fall. She was diagnosed with a varus impacted comminuted proximal humerus fracture requiring operative fixation. Risks, limitations, expectations, and complications of procedure were discussed in detail. All questions addressed. DESCRIPTION OF PROCEDURE: After informed consent was obtained, patient was brought into operating room. Patient was placed under interscalene general anesthesia. Right shoulder was prepped and draped in a sterile manner. This patient sustained her fracture earlier this week and therefore she had moderate swelling. Deltopectoral skin incision was marked out. The skin was infiltrated with 0.25% Marcaine with epi. The skin was incised. Subcutaneous flaps were created. There was significant adherence given the acute trauma. The brachiocephalic vein was difficult to visualize. The margin between the anterior and middle deltoid raphe were identified and the deltoid was split. Once this was done, attention was turned to the blunt dissection down to the proximal humerus. Subdeltoid space was entered. At this point, complete bursectomy was performed to better visualize the fracture fragments. The biceps tendon was identified. Just lateral to the biceps tendon, soft tissue medial sleeve was released distally to allow for proper plate fixation. There was some comminution across the proximal shaft fracture, which unseen on the initial imaging studies requiring a larger plate. At this point, 2 traction stitches were placed in the less and greater tuberosity. Reduction was performed. K-wire was placed. A [employer] proximal humerus plate was selected and secured with a K-wire, which was placed underneath the calcar. Once good position was confirmed, a shaft screw was placed in the distal aspect. At that point, multiple locking screws were then placed into the humeral head, so additional 3 more cortical shaft screws. AP and lateral imaging showed that the calcar was recreated. The fracture moved as a unit. Seemed like the plate was approximately 2 mm distal to the calcar. However, there seemed to be adequate fixation of the fracture fragment on the shaft and the concern was that it just may cause further reduction that we obtained. At this point, 4 [id number] sutures were placed in the lesser tuberosity, greater tuberosity, and posterior infraspinatus through the plate. This further secured the proximal humerus fracture, everything moved as a unit. At this point, 1 g of vancomycin was placed along the bone. The deltoid fascia was approximated using #1 Vicryl suture, 2-0 Vicryl suture, 3-0 Monocryl suture, Dermabond dressing. Patient was then woken, taken to recovery room with stable vital signs. ESTIMATED BLOOD LOSS: 50 mL. COMPLICATIONS: None. SPECIMENS: None. IMPLANTS: Include [employer] proximal humerus plate, multiple proximal locking screws and distal cortical screws. Moris Irving M.D. DR: AMRITA JOB#: [id number] CC:
--- NOTE | 2020-07-05 18:55 | NUR ---
NURSE HAND-OFF: Important Events on Shift: OR/IF of the right proximal humerus done Patient Status: stable Diet: regular Pending Orders: n/a Pending Results/Labs:n/a Pending MD notification:n/a Latest Vital Signs: Temperature 97.1 , Pulse 98 , B/P 139 /72 , Respiratory Rate 22 , O2 SAT 99 , Nasal Cannula, O2 Flow Rate 3 . Vital Sign Comment: stable Latest Todd Fall Score: 60 Fall Risk: High Risk Safety Measures: Call light Within Reach, Bed Alarm Zone 2, Side Rails Side Rails x2, Bed position Low and Locked. Fall Precautions: Patient Fall Education Report given to JU Chauhan.
--- NOTE | 2020-07-05 19:59 | Consultation ---
DATE OF CONSULTATION: 07/04/2020 ORTHOPEDIC CONSULTATION CHIEF COMPLAINT: Right shoulder pain. HISTORY OF PRESENT ILLNESS: The patient was admitted with proximal humerus fracture. Given that she had uncontrolled pain, wanted to proceed with operative fixation. She still has some pain in the right shoulder. She is using a shoulder abduction brace. PAST MEDICAL HISTORY: Reviewed per intake chart. PAST SURGICAL HISTORY: Reviewed per intake chart. MEDICATIONS: Reviewed per intake chart. PHYSICAL EXAMINATION: GENERAL: The patient is alert and oriented. She is resting comfortably on bed. VITAL SIGNS: Afebrile with stable vital signs. EXTREMITIES: Right shoulder examination, shoulder abduction brace, moderate ecchymosis, moderate swelling. DIAGNOSTIC DATA: Two views of the right shoulder showed varus-aligned proximal humerus fracture as well as a right comminuted proximal humerus fracture. DISCUSSION: At this point, we are going to proceed with open reduction and internal fixation. Risks, limitations, expectations, and complications were discussed in detail. All questions were addressed. We will go ahead and coordinate the planning and scheduling going forward, today if she is medically cleared. Moris Irving M.D. DR: CHARLETTE JOB#: [id number] CC: LIANNA
--- NOTE | 2020-07-05 20:00 | NUR ---
NURSE NOTES: RECEIVED PATIENT LYING IN BED, AWAKE, ALERT/ORIENTED X4, NOTED IN HIGH FOWLERS POSITION, VERBALLY RESPONSIVE, S/P ORIF OF THE RIGHT PROXIMAL HUMERUS, SLING INTACT, DRESSING DRY AND INTACT, NO STAIN NOTED, ECCHYMOSIS NOTED TO RIGHT UPPER ARM/RIGHT EYE/TORSO,NO OPEN AREAS NOTED. NO SIGNS AND SYMPTOMS OF ACUTE CARDIO RESPIRATORY DISTRESS/SHORTNESS OF BREATH, DENIES CHEST PAIN,NO EDEMA NOTED. DENIES GI DISCOMFORT, NO N/V/D, ASSISTED PATIENT TO BEDSIDE COMMODE, URINATED WITHOUT DIFFICULTY, DENIES DIZZINESS/HEADACHE. FALL PRECAUTIONS IMPLEMENTED/NARCOTIC USAGE, SIDE RAILS UP X2 FOR SAFETY, BED IN LOWEST POSITION, CALL LIGHT WITHIN REACH, REINFORCED IMPORTANCE OF UTILIZING CALL LIGHT FOR ASSISTANCE, VERBALIZED UNDERSTANDING. BED ALARM ACTIVATED. CONTINUE WITH CURRENT PLAN OF CARE. NAD.
[2020-07-05] MEDS: oxyCONTIN 20mg tab ORAL SCH (20:08)
[2020-07-06] VITALS (7 sets, daily range): BP systolic 113–166; BP diastolic 69–93
[2020-07-06] MEDS: HYDROmorphone 1mg/ml Carpuject SUBQ PRN ×6 (03:54→22:27)
--- NOTE | 2020-07-06 07:40 | NUR ---
NURSE HAND-OFF: Important Events on Shift:[S/P ORIF OF THE RIGHT PROXIMAL HUMERUS /, BOWMAN/SURGEON, DRESSING DRY AND INTACT, NO STAIN NOTED/IMMOBILIZER,CONTINENT/BSC WITH ASSIST] Patient Status: [STABLE] Diet: [REGULAR] Pending Orders: [N/A] Pending Results/Labs:[N/A] Pending MD notification:[] Latest Vital Signs: Temperature 98.4 , Pulse 107 , B/P 113 /70 , Respiratory Rate 18 , O2 SAT 93 , Nasal Cannula, O2 Flow Rate 3 . Vital Sign Comment: [STABLE,AFEBRILE] Latest Todd Fall Score: 60 Fall Risk: High Risk Safety Measures: Call light Within Reach, Bed Alarm Zone 2, Side Rails Side Rails x2, Bed position Low and Locked. Fall Precautions: Patient Fall Education Report given to [VÍCTOR OLIVA].
--- NOTE | 2020-07-06 07:45 | NUR ---
NURSE NOTES: Received report from VÍCTOR Royal. Pt awake in bed, alert and oriented. Breathing even and unlabored on RA. Pain at right shoulder got better after PRN pain administered. Surgical dressing C/D/I. IV sited intact and patent. Pt uses BSC. Call light within reach. Will continue to monitor.
[2020-07-06] MEDS: Dyna-Hex 2% Top Sol 2oz TOPIC SCH ×2 (09:00→17:56)
[2020-07-06] MEDS: Docusate 100mg cap ORAL SCH ×3 (09:22→18:08)
[2020-07-06] MEDS: oxyCONTIN 20mg tab ORAL SCH ×2 (09:22→20:51)
--- NOTE | 2020-07-06 12:13 | NUR ---
CHARGE NURSE NOTE: BP157/83, [id number], O2sat 95/2lnc, pain level 6/10. notified, he asked to call . Primary nurse Kahlotus will give PO Clonidine 0.1mg. was called, message left.
--- NOTE | 2020-07-06 12:35 | NUR ---
NURSE NOTES: Pt was seen by Dr. Hurst. No new order at this time.
--- NOTE | 2020-07-06 13:50 | NUR ---
CHARGE NURSe NOTE: Clonidine 0.1 po was given by primary RN. But BP still high 166/85, HR120. notified, no new orders.
--- NOTE | 2020-07-06 15:32 | Pulmonology Progress Note ---
Subjective ROS Limited/Unobtainable: No Interval Events: POD #1; feeling well Constitutional: Reports: no symptoms HEENT: Repors: no symptoms Respiratory: Reports: no symptoms Cardiovascular: Reports: no symptoms Gastrointestinal/Abdominal: Reports: no symptoms Genitourinary: Reports: no symptoms Musculoskeletal: Reports: pain - right shoulder Allergies: Coded Allergies: No Known Allergies (Unverified , 07/02/20) Objective Last 24 Hour Vital Signs Date Time Temp Pulse Resp B/P (MAP) Pulse Ox O2 Delivery O2 Flow Rate FiO2 07/06/20 13:30 98.2 120 18 160/85 (110) 95 07/06/20 12:44 98.4 07/06/20 12:14 166/93 07/06/20 12:00 98.4 120 18 157/83 (107) 95 07/06/20 09:52 98.4 07/06/20 09:00 Room Air Room Air 07/06/20 08:00 98.2 115 18 166/93 (117) 94 07/06/20 07:41 98.4 07/06/20 04:24 98.4 07/06/20 04:00 98.4 107 18 113/70 (84) 93 07/06/20 00:30 97.7 07/06/20 00:00 98.2 78 20 124/69 (87) 96 07/05/20 21:00 Room Air Room Air 07/05/20 20:38 97.7 07/05/20 20:00 97.9 107 18 136/63 (87) 96 07/05/20 19:00 98.1 101 20 141/72 (95) 97 07/05/20 18:30 97.7 98 20 140/69 (92) 97 07/05/20 18:00 97.8 103 20 143/68 (93) 94 07/05/20 17:35 97.1 98 22 139/72 99 Nasal Cannula 3 07/05/20 17:25 98 16 132/92 99 Nasal Cannula 3 07/05/20 17:10 102 16 145/74 98 Nasal Cannula 3 07/05/20 16:55 105 18 166/86 100 Simple Mask 6 07/05/20 16:55 100 14 98 07/05/20 16:45 102 19 159/79 100 Simple Mask 6 07/05/20 16:40 105 14 100 07/05/20 16:35 103 20 163/79 100 Simple Mask 6 07/05/20 16:30 112 22 165/78 100 Simple Mask 6 07/05/20 16:25 98.2 117 24 155/87 100 Simple Mask 6 Intake and Output 07/05/20 07/06/20 19:00 07:00 Intake Total 1050 ml 800 ml Balance 1050 ml 800 ml Intake Oral 50 ml 800 ml IV Total 1000 ml # Voids 6 General Appearance: no acute distress HEENT: atraumatic Respiratory: lungs clear Cardiovascular: normal rate Abdomen: soft, non tender Current Medications Medications (Trade) Dose Ordered Sig/Jose Route PRN Reason Start Time Stop Time Status Last Admin Dose Admin Acetaminophen (Tylenol) 650 mg Q6H PRN ORAL Temp >100.5 07/04/20 16:36 08/03/20 16:35 Chlorhexidine Gluconate (Jocelyn-Hex 2%) 1 applic BID TOPIC 07/04/20 18:00 10/02/20 17:59 Clonidine HCl (Catapres Tab) 0.1 mg Q6H PRN ORAL For High Blood Pressure 07/04/20 15:30 10/02/20 15:29 07/06/20 12:14 Dextrose (Dextrose 50%) 25 ml Q30M PRN IV Hypoglycemia 07/04/20 15:15 10/02/20 15:14 Dextrose (Dextrose 50%) 50 ml Q30M PRN IV Hypoglycemia 07/04/20 15:15 10/02/20 15:14 Docusate Sodium (Colace) 100 mg THREE TIMES A DAY ORAL 07/05/20 18:00 08/04/20 17:59 07/06/20 12:14 Hydromorphone HCl (Dilaudid) 0.5 mg Q4H PRN SUBQ Mild Pain (Pain Scale 1-3) 07/05/20 14:15 07/12/20 14:14 Hydromorphone HCl (Dilaudid) 1 mg Q3H PRN SUBQ Moderate Pain (Pain Scale 4-6) 07/05/20 14:15 07/12/20 14:14 07/06/20 12:14 Ondansetron HCl (Zofran) 4 mg Q6H PRN IVP Nausea & Vomiting 07/05/20 14:15 08/04/20 14:14 2/6/21 12:14 Oxycodone HCl (OxyCONTIN) 20 mg EVERY 12 HOURS ORAL 07/05/20 21:00 07/12/20 20:59 07/06/20 09:22 Temazepam (RestoriL) 7.5 mg HSPRN PRN ORAL Insomnia 07/05/20 14:15 07/12/20 14:14 Assessment/Plan Assessment/Plan 1. History of COPD -Patient denies use of home oxygen -Patient is currently saturating well on room air -Reports last COPD exacerbation was over 1.5 year ago -Provide supplemental oxygen as needed 2. Proximal humeral fracture -S/p oRIF - PAin control 3. Hypertensive - Continue clonidine 0.1 mg PO q6HR prn SBP >150 4. Hyperglycemia without history of DM - A1c 6.3 DVT ppx - on SCD currently Dung Hurst MD Jul 06, 2020 15:32
--- NOTE | 2020-07-06 16:23 | NUR ---
CASE MANAGEMENT: REVIEW 07/06/2020 SI: RT SHOULDER FRACTURE VS: T 98.2 HR 120 RR 18 B/P 160/85 SATS 95% ON RA LABS: NO LABS TODAY IS: OXYCODONE PO Q12H : TO MED/SURG UNIT DCP: FROM HOME PLAN: POST OP CARE
--- NOTE | 2020-07-06 19:27 | NUR ---
NURSE NOTES: RECEIVED PATIENT LYING IN BED, AWAKE, ALERT/ORIENTED X4, VERBALLY RESPONSIVE, S/P ORIF RIGHT PROXIMAL HUMERUS, DRESSING DRY AND INTACT, NO STAIN NOTED, TOLERATING 02 2L VIA NASAL CANULA, SP02 95%, NO SIGNS AND SYMPTOMS OF ACUTE CARDIO RESPIRATORY DISTRESS/SHORTNESS OF BREATH, NO PERIPHERAL EDEMA NOTED. FALL PRECAUTIONS ONGOING SECONDARY TO NARCOTIC USAGE/FALL HISTORY, BED IN LOWEST POSITION FOR SAFETY, SIDE RAILS UP X2, ENCOURAGED PATIENT TO UTILIZE CALL LIGHT FOR ASSISTANCE, PAIN MANAGEMENT VIA DILAUDID SUBCUT, TOLERATING WELL. CONTINUE WITH CURRENT PLAN OF CARE. NAD.
--- NOTE | 2020-07-06 19:32 | NUR ---
NURSE HAND-OFF: Important Events on Shift:[High BP 160/90 and high HR 120, PRN Clonidine 0.1mg given x2, still BP high and tachy. O2 on RA 90%, put NC 2L with 95%, MD aware, No new order for tachy. Pt c/o pain and nausea, Dilaudid 1mg given x2, Zofran given for nausea. ] Patient Status: [] Diet: [reg] Pending Orders: [] Pending Results/Labs:[] Pending MD notification:[] Latest Vital Signs: Temperature 98.3 , Pulse 111 , B/P 152 /82 , Respiratory Rate 18 , O2 SAT 98 , Nasal Cannula, O2 Flow Rate 3 . Vital Sign Comment: [high BP, Tachy] Latest Todd Fall Score: 60 Fall Risk: High Risk Safety Measures: Call light Within Reach, Bed Alarm Zone 2, Side Rails Side Rails x2, Bed position Low and Locked. Fall Precautions: Patient Fall Education Report given to [VÍCTOR Royal].
[2020-07-07] VITALS: BP 130/69
[2020-07-07 04:00] VITALS: BP 140/71
[2020-07-07] MEDS: HYDROmorphone 1mg/ml Carpuject SUBQ PRN ×4 (04:17→16:10)
--- NOTE | 2020-07-07 06:29 | NUR ---
NURSE HAND-OFF: Important Events on Shift:[S/P DAY #2 ORIF OF THE RIGHT PROXIMAL HUMERUS, IMMOBILIZER INTACT, PAIN MANAGEMENT ONGOING/DILAUDID SUBCUT, SAFETY MAINTAINED] Patient Status: [STABLE] Diet: [REGULAR] Pending Orders: [N/A] Pending Results/Labs:[] Pending MD notification:[] Latest Vital Signs: Temperature 96.8 , Pulse 105 , B/P 140 /71 , Respiratory Rate 20 , O2 SAT 96 , Nasal Cannula, O2 Flow Rate 3 . Vital Sign Comment: [STABLE, AFEBRILE] Latest Todd Fall Score: 60 Fall Risk: High Risk Safety Measures: Call light Within Reach, Bed Alarm Zone 2, Side Rails Side Rails x2, Bed position Low and Locked. Fall Precautions: Patient Fall Education Report given to [VÍCTOR OLIVA].
--- NOTE | 2020-07-07 07:45 | NUR ---
NURSE NOTES: Received report from VÍCTOR Royal. Pt awake in bed, alert and oriented. Breathing even and unlabored on RA. Pt c/o pain 11/07. Will administer PRN pain med as ordered. Surgical dressing C/D/I. IV sited intact and patent. Pt uses BSC. Call light within reach. Will continue to monitor.
[2020-07-07 08:00] VITALS: BP 147/75
[2020-07-07] MEDS: Docusate 100mg cap ORAL SCH ×3 (08:20→18:05)
[2020-07-07] MEDS: oxyCONTIN 20mg tab ORAL SCH ×2 (08:20→20:25)
[2020-07-07] MEDS: Dyna-Hex 2% Top Sol 2oz TOPIC SCH ×2 (08:22→18:00)
--- NOTE | 2020-07-07 08:52 | NUR ---
CHARGE NURSE NOTE: s/p right arm ORIF. Right arm more swollen than yesterday. notified.
--- NOTE | 2020-07-07 11:20 | Pulmonology Progress Note ---
Subjective ROS Limited/Unobtainable: No Interval Events: POD #2; feeling well Constitutional: Reports: no symptoms HEENT: Repors: no symptoms Respiratory: Reports: no symptoms Cardiovascular: Reports: no symptoms Gastrointestinal/Abdominal: Reports: no symptoms Genitourinary: Reports: no symptoms Musculoskeletal: Reports: pain - right shoulder Allergies: Coded Allergies: No Known Allergies (Unverified , 07/02/20) Objective Last 24 Hour Vital Signs Date Time Temp Pulse Resp B/P (MAP) Pulse Ox O2 Delivery O2 Flow Rate FiO2 07/07/20 09:00 Room Air Room Air 07/07/20 08:50 96.8 07/07/20 08:00 97.5 108 20 147/75 (99) 93 07/07/20 04:47 96.8 07/07/20 04:00 97.3 105 20 140/71 (94) 96 07/07/20 00:00 96.8 109 20 130/69 (89) 93 07/06/20 22:57 98.1 07/06/20 21:21 98.1 07/06/20 21:00 Room Air Room Air 07/06/20 20:00 98.1 112 20 137/69 (91) 95 07/06/20 18:59 98.3 07/06/20 18:29 152/82 07/06/20 16:00 98.3 111 18 152/82 (105) 98 07/06/20 13:30 98.2 120 18 160/85 (110) 95 07/06/20 12:44 98.4 07/06/20 12:14 166/93 07/06/20 12:00 98.4 120 18 157/83 (107) 95 Intake and Output 07/06/20 07/07/20 19:00 07:00 Intake Total 800 ml 1080 ml Balance 800 ml 1080 ml Intake Oral 800 ml 720 ml Other 360 ml # Voids 5 3 General Appearance: no acute distress HEENT: atraumatic Respiratory: lungs clear Cardiovascular: normal rate Abdomen: soft, non tender Current Medications Medications (Trade) Dose Ordered Sig/Jose Route PRN Reason Start Time Stop Time Status Last Admin Dose Admin Acetaminophen (Tylenol) 650 mg Q6H PRN ORAL Temp >100.5 07/04/20 16:36 08/03/20 16:35 Chlorhexidine Gluconate (Jocelyn-Hex 2%) 1 applic BID TOPIC 07/04/20 18:00 10/02/20 17:59 Clonidine HCl (Catapres Tab) 0.1 mg Q6H PRN ORAL For High Blood Pressure 07/04/20 15:30 10/02/20 15:29 07/06/20 18:29 Dextrose (Dextrose 50%) 25 ml Q30M PRN IV Hypoglycemia 07/04/20 15:15 10/02/20 15:14 Dextrose (Dextrose 50%) 50 ml Q30M PRN IV Hypoglycemia 07/04/20 15:15 10/02/20 15:14 Docusate Sodium (Colace) 100 mg THREE TIMES A DAY ORAL 07/05/20 18:00 08/04/20 17:59 07/07/20 08:20 Hydromorphone HCl (Dilaudid) 0.5 mg Q4H PRN SUBQ Mild Pain (Pain Scale 1-3) 07/05/20 14:15 07/12/20 14:14 Hydromorphone HCl (Dilaudid) 1 mg Q3H PRN SUBQ Moderate Pain (Pain Scale 4-6) 07/05/20 14:15 07/12/20 14:14 07/07/20 10:30 Ondansetron HCl (Zofran) 4 mg Q6H PRN IVP Nausea & Vomiting 07/05/20 14:15 08/04/20 14:14 07/06/20 12:14 Oxycodone HCl (OxyCONTIN) 20 mg EVERY 12 HOURS ORAL 07/05/20 21:00 07/12/20 20:59 07/07/20 08:20 Temazepam (RestoriL) 7.5 mg HSPRN PRN ORAL Insomnia 07/05/20 14:15 07/12/20 14:14 Assessment/Plan Assessment/Plan 1. History of COPD -Patient denies use of home oxygen -Patient is currently saturating well on room air -Reports last COPD exacerbation was over 1.5 year ago -Provide supplemental oxygen as needed 2. Proximal humeral fracture -S/p oRIF - PAin control 3. Hypertensive - Continue clonidine 0.1 mg PO q6HR prn SBP >150 4. Hyperglycemia without history of DM - A1c 6.3 DVT ppx - on SCD currently Dung Hurst MD Jul 07, 2020 11:20
[2020-07-07 12:00] VITALS: BP 154/85
[2020-07-07 16:00] VITALS: BP 126/71
--- NOTE | 2020-07-07 19:00 | NUR ---
NURSE HAND-OFF: Important Events on Shift:[Right arm more swollen than yesterday. SCD on R FA per MD for circulation. Pain management ] Patient Status: [stable] Diet: [reg] Pending Orders: [] Pending Results/Labs:[] Pending MD notification:[] Latest Vital Signs: Temperature 98.6 , Pulse 118 , B/P 126 /71 , Respiratory Rate 20 , O2 SAT 94 , Nasal Cannula, O2 Flow Rate 3 . Vital Sign Comment: [tachy, 91% on RA, NC 2L 95%] Latest Todd Fall Score: 60 Fall Risk: High Risk Safety Measures: Call light Within Reach, Bed Alarm Zone 2, Side Rails Side Rails x2, Bed position Low and Locked. Fall Precautions: Patient Fall Education Report given to [VÍCTOR Royal].
[2020-07-07 20:00] VITALS: BP 141/68
--- NOTE | 2020-07-07 20:00 | NUR ---
NURSE NOTES: RECEIVED PATIENT LYING IN BED, AWAKE, ALERT/ORIENTED X4, VERBALLY RESPONSIVE, S/P ORIF OF THE RIGHT PROXIMAL HUMERUS, SWELLING NOTED TO RIGHT UPPER EXTREMITY EXTENDING TO HAND WHICH APPEAR PUFFY, ELEVATED ON TWO PILLOWS, PER MD ORDER, APPLIED SCD TO FOREARM FOR CIRCULATION IMPROVEMENT, INSTRUCTED PATIENT ON IMPORTANCE OF NOT REMOVING DEVICE, VERBALIZED UNDERSTANDING. IV INTACT TO LEFT HAND, NO SWELLING/REDNESS NOTED. NO SIGNS AND SYMPTOMS OF ACUTE CARDIO RESPIRATORY DISTRESS/SHORTNESS OF BREATH, DENIES CHEST PAIN. NO COMPLAINTS OF GI DISCOMFORT, DENIES N/V/D. SIDE RAILS UP X2, BED IN LOWEST POSITION FOR SAFETY, ENCOURAGED PATIENT TO UTILIZE CALL LIGHT FOR ASSISTANCE, VERBALIZED UNDERSTANDING. CONTINUE WITH PAIN MANAGEMENT. NAD.
[2020-07-08] VITALS: BP 146/76
[2020-07-08] MEDS: HYDROmorphone 1mg/ml Carpuject SUBQ PRN ×2 (01:23→12:25)
[2020-07-08 04:00] VITALS: BP 147/79
--- NOTE | 2020-07-08 07:35 | NUR ---
NURSE NOTES: Received report from Karyn Joshua LVN. Patient sitting up in bed, awake and alert, eating breakfast, she has removed the SCD's ordered to be on the right forearm, re-educated that the SCD's need to be on per Dr. Dung Hurst, bed in lowest position, wheels locked, side rails up x 2, call light within reach, c/o pain, previously given Dilaudid subQ. Will follow-up with administration of pain medication after rounds.
[2020-07-08 08:00] VITALS: BP 171/76
[2020-07-08] MEDS: oxyCONTIN 20mg tab ORAL SCH (08:15)
[2020-07-08] MEDS: Dyna-Hex 2% Top Sol 2oz TOPIC SCH (08:15)
[2020-07-08] MEDS: Docusate 100mg cap ORAL SCH ×2 (08:15→12:25)
--- NOTE | 2020-07-08 11:12 | Pulmonology Progress Note ---
Subjective ROS Limited/Unobtainable: No Interval Events: POD #3; feeling well Constitutional: Reports: no symptoms HEENT: Repors: no symptoms Respiratory: Reports: no symptoms Cardiovascular: Reports: no symptoms Gastrointestinal/Abdominal: Reports: no symptoms Genitourinary: Reports: no symptoms Musculoskeletal: Reports: pain - right shoulder Allergies: Coded Allergies: No Known Allergies (Unverified , 07/02/20) Objective Last 24 Hour Vital Signs Date Time Temp Pulse Resp B/P (MAP) Pulse Ox O2 Delivery O2 Flow Rate FiO2 07/08/20 09:00 Room Air Room Air 07/08/20 08:45 98.3 07/08/20 08:00 97.9 114 19 171/76 (107) 94 07/08/20 04:00 98.3 100 20 147/79 (101) 93 07/08/20 01:53 98.4 07/08/20 00:00 98.4 102 22 146/76 (99) 94 07/07/20 21:00 Room Air Room Air 07/07/20 20:55 98.6 07/07/20 20:00 97.3 107 18 141/68 (92) 93 07/07/20 16:40 98.6 07/07/20 16:00 97.6 118 20 126/71 (89) 94 07/07/20 12:51 154/85 07/07/20 12:00 98.6 115 20 154/85 (108) 95 Intake and Output 07/07/20 07/08/20 19:00 07:00 Intake Total 480 ml Balance 480 ml Intake Oral 480 ml # Voids 2 4 General Appearance: no acute distress HEENT: atraumatic Respiratory: lungs clear Cardiovascular: normal rate Abdomen: soft, non tender Current Medications Medications (Trade) Dose Ordered Sig/Jose Route PRN Reason Start Time Stop Time Status Last Admin Dose Admin Acetaminophen (Tylenol) 650 mg Q6H PRN ORAL Temp >100.5 07/04/20 16:36 08/03/20 16:35 Chlorhexidine Gluconate (Jocelyn-Hex 2%) 1 applic BID TOPIC 07/04/20 18:00 10/02/20 17:59 07/08/20 08:15 Clonidine HCl (Catapres Tab) 0.1 mg Q6H PRN ORAL For High Blood Pressure 07/04/20 15:30 10/02/20 15:29 07/07/20 12:51 Dextrose (Dextrose 50%) 25 ml Q30M PRN IV Hypoglycemia 07/04/20 15:15 10/02/20 15:14 Dextrose (Dextrose 50%) 50 ml Q30M PRN IV Hypoglycemia 07/04/20 15:15 10/02/20 15:14 Docusate Sodium (Colace) 100 mg THREE TIMES A DAY ORAL 07/05/20 18:00 08/04/20 17:59 07/08/20 08:15 Hydromorphone HCl (Dilaudid) 0.5 mg Q4H PRN SUBQ Mild Pain (Pain Scale 1-3) 07/05/20 14:15 07/12/20 14:14 Hydromorphone HCl (Dilaudid) 1 mg Q3H PRN SUBQ Moderate Pain (Pain Scale 4-6) 07/05/20 14:15 07/12/20 14:14 07/08/20 01:23 Ondansetron HCl (Zofran) 4 mg Q6H PRN IVP Nausea & Vomiting 07/05/20 14:15 08/04/20 14:14 07/06/20 12:14 Oxycodone HCl (OxyCONTIN) 20 mg EVERY 12 HOURS ORAL 07/05/20 21:00 07/12/20 20:59 07/08/20 08:15 Temazepam (RestoriL) 7.5 mg HSPRN PRN ORAL Insomnia 07/05/20 14:15 07/12/20 14:14 Assessment/Plan Assessment/Plan 1. History of COPD -Patient denies use of home oxygen -Patient is currently saturating well on room air -Reports last COPD exacerbation was over 1.5 year ago -Provide supplemental oxygen as needed 2. Proximal humeral fracture -S/p ORIF - Pain control - R anterior area edema; continue SCD and right arm elevation with pillows - Will dc home; added PO Kelflex 3. Hypertensive - Continue clonidine 0.1 mg PO q6HR prn SBP >150 4. Hyperglycemia without history of DM - A1c 6.3 DVT ppx - on SCD currently The care for this patient was discussed with my supervising physician Time spent for this case was approximately 31 minutes Cuco Aguilera Jul 08, 2020 11:12 Dung Hurst MD Jul 08, 2020 11:27
[2020-07-08] MEDS ORDERED: HYDROCODON-ACE1 EA18 PO (11:32)
[2020-07-08] MEDS ORDERED: CEPHALEXIN500 MG ORAL ×2 (11:32)
[2020-07-08 12:00] VITALS: BP 151/83
--- NOTE | 2020-07-08 12:19 | NUR ---
CASE MANAGEMENT:REVIEW 07/08/20 SI: POD #4 S/P RT SHOULDER ORIF 97.9 114 19 171/76 94% ON RA IS: DISCHARGE HOME TODAY
--- NOTE | 2020-07-08 12:27 | NUR ---
INSURANCE CLINICALS/REVIEWS FAXED TO [employer] [phone]
--- NOTE | 2020-07-09 14:32 | Discharge Summary ---
Discharge Summary Discharge Summary _ Date of admission: 07/04/2020 Date of discharge: 07/08/[address] Hurst History of Present Illness and Brief Hospital Course Ms. Garcia is a 59-year-old female who presented to the ED for a scheduled surgery of her right shoulder. Patient visited to [facility] emergency room on 07/02/20 after a mechanical fall at home. Head CT during that visit was negative for acute intracranial bleed or mass-effect. Hand x-ray was negative for acute fracture or dislocation. The right shoulder x-ray was positive for proximal humeral fracture. Patient was placed in a shoulder immobilizer and was given pain medication. Patient was offered admission but she declined. She return to ED per her orthopedist's recommendation on 07/04/2020. She reported pain in her right arm that was 8/10 in severity without radiation. Patient was stable and was admitted to the hospital for surgery. Patient was given [place] in the ER for pain management. Of note, she tested negative for COVID-19 on 07/02/2020. Her chest x-ray was normal. Her EKG showed sinus tachycardia. She was considered at mild to moderate risk for perioperative complications due to her age and COPD. She underwent right shoulder open reduction internal fixation, plate and screw fixation on 07/05/2020. Patient tolerated the procedure well and was taken to recovery room with stable vital signs. Patient was found to have right upper arm edema and erythema after the surgery. Patient was instructed to continue use of SCD and elevate her right arm with pillows. Patient was prescribed Keflex upon discharge given signs of phlebitis of the right arm. She is to follow-up with her primary care provider for evaluation of her blood pressure and blood glucose. Consultants: Orthopedics Dr. Irving Discharge Condition Improved and stable Discharge Activity Advance as tolerated Final diagnoses Right shoulder pain, status post mechanical fall Status post right shoulder open reduction internal fixation, plate and screw fixation Biceps tenodesis Bursectomy and release of CA ligament History of COPD High blood pressure Prediabetes I have been assigned to dictate discharge summary for this account. Cuco Aguilera Jul 09, 2020 14:32
--- NOTE | 2020-07-10 02:02 | Cardiology Report ---
APPROVED REPORT EKG Measurement Heart [id number] <Conclusion> Sinus tachycardia Otherwise normal ECG
--- NOTE | 2020-07-10 10:05 | NUR ---
INSURANCE CLINICALS/REVIEWS/DC SUMMARY/INSTRUCTIONS FAXED TO [employer] [phone] OPT 6
== END 2020-07-08 14:15 | disposition home or self-care (01) | DRG 494 ==
LOC: EMR 13:31 → 4E 13:51 → EDBEDREQ 13:55
PROC: 0PSC04Z Reposition Right Humeral Head with Internal Fixation Device, Open Approach (ICD-10-PCS; principal; 2020-07-04)
PROC: 0LS30ZZ Reposition Right Upper Arm Tendon, Open Approach (ICD-10-PCS; principal; 2020-07-04)
PROC: 0MT Bursae and Ligaments, Resection (ICD-10-PCS; principal; 2020-07-04)
DX: S42.201A Unspecified fracture of upper end of right humerus, initial encounter for closed fracture (principal); W19.XXXA Unspecified fall, initial encounter; Y92.009 Unspecified place in unspecified non-institutional (private) residence as the place of occurrence of the external cause; J44.9 Chronic obstructive pulmonary disease, unspecified; I10 Essential (primary) hypertension; R73.03 Prediabetes
CPT/HCPCS: 36415; 71045; 76000; 80048; 80053; 83036; 85025; 85610; 85730; 86850; 86900; 86901; 93005; 99285; J2250; J2370; J2405; J2710; J2765